=== PATIENT | female | born 1985 | race Caucasian/White ===

== ENCOUNTER 2024-07-13 08:48 | Emergency (ER) | payer SELFPAY ==
[2024-07-13 09:05] VITALS: BP 97/59; PULSE 76; RESP 20; TEMP 37.2; O2SAT 99; BMI 36.1
--- NOTE | 2024-07-13 09:31 | EXP.UTC ---
Discharge Plan Disposition Patient Disposition: Home, Self-Care Condition: Good Prescriptions Prescriptions: New pseudoephedrine HCl [Sudafed 12 Hour] 120 mg tablet extended release 120 mg PO Q12H PRN (Reason: nasal congestion) Qty: 20 0RF cefdinir 300 mg capsule 300 mg PO BID Qty: 20 0RF No Action cetirizine 10 mg Tablet 10 mg PO DAILY azelastine-fluticasone 137-50 mcg/spray Soldier,Non-Aerosol 2 spray INTRANASAL DAILY Rx Instructions: administer into each nostril Referrals Follow up/Referrals: Provider,Referral, MD [Primary Care Provider] - See instructions Activity Restrictions/Add. Instructions Additional Instructions/Restrictions: *Monitor Temp, Over the counter Motrin or Tylenol as directed/as needed Tylenol every 4 hours and Motrin every 6 hours (as long as your family doctor has told you that you can take it) for fever or pain. and straight to ER if unable to lower temp less than 101.0 after medication given *Warm salt water gargles may help to soothe the throat *Throat Lozenges? *Warm fluids like tea with honey may help to soothe the throat? *Sleep elevated *Humidifier/Vaporizer Follow up IMMEDIATELY for new or worsening symptoms or no Noticeable improvement over the next 48-72 hours. 911 for difficulty breathing or swallowing You were tested for today for COVID19 your test result should be back in the next few ?hours, you may check your results on the [facility] [employer] [facility] Health Portal Clinical Impressions Clinical Impression: UTI (urinary tract infection) Instructions Patient Instructions: DI for Nasal Congestion, Pseudoephedrine, DI for Urinary Tract Infection (UTI) Print Language Print Language: Telugu Discharge ED Provider: Antonia Keenan [facility] HPI General Stated complaint: cough, headache, fever, aches Mode of Arrival: Ambulatory Source of Information: Patient Limitations: No Limitations Time Seen by Provider: 07/13/24 09:31 Description of Symptoms (Recalled from Triage Doc. by RN): PATIENT C/O FEVER, LOWER BACK PAIN, SINUS PRESSURE, HEADACHE, RUNNY NOSE, AND SNEEZING THAT STARTED LAST NIGHT. SHE STATES SHE NEEDS A COVID AND FLU TEST FOR WORK HEENT Symptoms (Recalled from RN notes): Yes Resp Symptoms (Recalled from RN notes): No Skin Symptoms (Recalled from RN notes): No MS Symptoms (Recalled from RN notes): No Functional Status (Recalled from RN notes): WNL History of Present Illness Provider Complaint: Patient states that she went to work yesterday and felt fine but as the day went on she started having body aches, achy like feeling in her lower back, feeling feverish, chills, sinus congestion and sneezing and over all not feeling well States when she woke up this morning she was feeling worse so she came in to get checked Related Data Home Medications ?Medication ?Instructions ?Recorded ?Confirmed azelastine 137 mcg-fluticasone 50 2 spray intranasal DAILY 07/13/24 07/13/24 mcg/spray nasal spray cetirizine 10 mg tablet 10 mg PO DAILY 07/13/24 07/13/24 Previous Rx's ?Medication ?Instructions ?Recorded cefdinir 300 mg capsule 300 mg PO BID #20 caps 07/13/24 pseudoephedrine HCl 120 mg 120 mg PO Q12H PRN nasal 07/13/24 tablet,extended release (Sudafed congestion #20 tabs 12 Hour) Allergies Allergy/AdvReac Type Severity Reaction Status Date / Time No Known Allergies Allergy Verified 07/13/24 09:22 Worker's Comp Is this a Worker's Comp case?: No [facility] Disclaimer: The information contained in this section may have been updated after the patient was seen, as this information can be updated by other users. Surgical History (Updated 07/13/24 @ 09:23 by Concepción De RN) History of tubal ligation Social History Smoking Status: Unknown if ever smoked alcohol intake: never current occupational status: employed Travel in the last 8 weeks: None ROS Obtained: Yes All systems reviewed & no additional complaints except as documented and Yes Systems reviewed as appropriate & no additional complaints except as documented Constitutional Constitutional: Reports system reviewed and no additional complaints, except as documented, Reports as per HPI, Reports body ache, Reports chills, Reports fever(s) and Reports headache(s) ENT Ears, Nose, Mouth, and Throat: Reports system reviewed and no additional complaints, except as documented, Reports as per HPI, Reports headache(s), Reports nasal congestion and Reports nasal discharge Cardiovascular Cardiovascular: Reports system reviewed and no additional complaints, except as documented and Reports as per HPI Respiratory Respiratory: Reports system reviewed and no additional complaints, except as documented and Reports as per HPI Gastrointestinal Gastrointestingal: Reports system reviewed and no additional complaints, except as documented and as per HPI Genitourinary Female Genitourinary: Reports system reviewed and no additional complaints, except as documented, Reports as per HPI and Reports flank pain Musculoskeletal Musculoskeletal: Reports system reviewed and no additional complaints, except as documented and Reports as per HPI Neurologic Neurologic: Reports headache(s) Physical Exam General General appearance: alert and in no apparent distress ENT ENT exam: Present mucous membranes moist Expanded ENT Exam Nose exam: Present other (reports clear drainage) Respiratory Respiratory exam: Present normal lung sounds bilaterally; Absent respiratory distress or wheezes Cardiovascular Cardiovascular exam: Present regular rate, normal rhythm and normal heart sounds Back Exam Back 1 view image: 1. reports achy like feeling on and off Neurological Exam Neurological exam: Present alert, oriented X3 and normal gait Medical Decision Making Jose C Inquiry Pt receiving controlled substance: No Jose C was queried for this patient: No Vital Signs: 07/13/24 09:05 Temperature 98.9 F Temperature Source Oral Pulse Rate [Left Brachial] 76 Respiratory Rate 20 Blood Pressure [Left Arm] 97/59 L Blood Pressure Mean [Left Arm] 71 Blood Pressure Source [Left Arm] Automatic Cuff Blood Pressure Position [Left Arm] Sitting 02 Sat by Pulse Oximetry 99 Oxygen Delivery Method Room Air Lab Data Lab results reviewed: Yes I reviewed the patient's lab results.
[2024-07-13 09:48] LABS: Apearance,Urine Clear (Clear); Bilirubin,Urine Negative (Negative); Blood, Urine Negative (Negative); Color,Urine Yellow (Yellow); Glucose,Urine (UA) Negative (Negative); Ketones,Urine Negative (Negative); Protein,Urine Negative (Negative); Specific Gravity, Urine >= 1.030 (1.005-1.030); UTC Leukocyte Esterase,Urine Trace (Negative); UTC Nitrate,Urine Negative (Negative); Urobilinogen,Urine 0.2 EU/dl (0.2)
[2024-07-13 09:53] LABS: Influenza A, PCR Not Detected (NotDetected); Influenza B, PCR Not Detected (NotDetected)
[2024-07-13 10:08] VITALS: BP 105/60; PULSE 76; RESP 20; TEMP 37.2; O2SAT 99
[2024-07-13 10:39] LABS: Coronavirus 19, PCR Detected (NotDetected)
== END 2024-07-13 10:12 | disposition home or self-care (01) ==
PROVIDERS: Emergency Provider Nurse Practitioner
DX: U07.1 COVID-19 (principal); N39.0 Urinary tract infection, site not specified; B96.89 Other specified bacterial agents as the cause of diseases classified elsewhere; R51.9 Headache, unspecified; R50.9 Fever, unspecified; R05.9 Cough, unspecified; M54.59 Other low back pain
CPT/HCPCS: 81003; 87086; 87636; 99204; 99212; G0463